=== PATIENT | male | born 1950 | race Caucasian/White ===

== ENCOUNTER → 2023-10-31 07:57 | Outpatient (REF) | payer MEDICARE, SELFPAY ==
[2023-10-31 09:18] LABS: % Basophils 1.6 % (0-2); % Eosinophils 4.1 % (0-6); % Immature Granulocytes 0.5 % (0-0.5); % Lymphocytes 32.7 % (20.5-51.1); % Monocytes 10.8 % (1.7-9.3); % Neutrophils 50.3 % (42.2-75.2); Absolute Basophils 0.1 10^3/uL (0-0.2); Absolute Eosinophils 0.3 10^3/uL (0-0.7); Absolute Lymphocytes 2.1 10^3/uL (1.2-3.4); Absolute Monocytes 0.7 10^3/uL (0.1-0.6); Absolute Neutrophils 3.2 10^3/uL (1.4-6.5); Hematocrit 44.1 % (39.0-52.0); Hemoglobin 15.8 g/dL (13.0-18.0); Mean Corp Hgb Conc. 35.8 g/dL (33.0-37.0); Mean Corpuscular Hgb 33.2 pg (27.0-31.0); Mean Corpuscular Volume 92.6 fL (80.0-94.0); Mean Platelet Volume 10.5 fL (7.4-10.4); Nucleated Red Blood Cells % 0 % (-); Platelet Count 339 10^3/uL (130-400); Red Blood Cell Count 4.76 10^6/uL (4.70-6.10); Red Cell Dist. Width 13.2 % (11.5-14.5); White Blood Cell Count 6.4 10^3/uL (4.8-10.8)
[2023-10-31 10:12] LABS: ALT (SGPT) 29 U/L (0-50); AST (SGOT) 35 U/L (17-59); Albumin 4.7 g/dl (3.5-5.0); Alkaline Phosphatase 64 U/L (38-126); Blood Urea Nitrogen 16 mg/dl (9-20); Calcium 10.2 mg/dl (8.4-10.2); Carbon Dioxide 29 mmol/L (22-30); Chloride 103 mmol/L (98-107); Glucose 114 mg/dl (70-99); HDL Cholesterol 38 mg/dl; LDL Cholesterol, Calculated 68 mg/dl; Potassium 3.7 mmol/L (3.5-5.1); Sodium 137 mmol/L (135-145); Total Bilirubin 1.6 mg/dl (0.2-1.3); Total Cholesterol 133 mg/dl (50-199); Total Protein 7.4 g/dl (6.3-8.2); Triglyceride 138 mg/dl (10-149); Very Low Density Lipoprotein 27 mg/dl (0-30); eGFR > 60.00
[2023-10-31 15:06] LABS: AFP Male/Tumor Marker 2.44 ng/ml
[2023-11-01 15:00] LABS: HCV Quant by NAAT IU/mL Not Detected; HCV Quant by NAAT Interp Not Detected (Not Detected); HCV Quant by NAAT Log IU/mL Not Detected log IU/mL
== END ==
LOC: REG 07:57
PROVIDERS: ATTENDING PHYSICIAN Family Medicine
DX: I10 Essential (primary) hypertension (principal); E78.2 Mixed hyperlipidemia; Z86.19 Personal history of other infectious and parasitic diseases
CPT/HCPCS: 36415; 80053; 80061; 82105; 85025; 87522

== ENCOUNTER 2024-02-08 14:54 | Emergency (ER) | payer MEDICARE, SELFPAY ==
[2024-02-08 14:57] VITALS: BP 132/92; BP 82/67
[2024-02-08 15:01] VITALS: BP 132/92
[2024-02-08 15:10] VITALS: BMI 30.4
[2024-02-08] MEDS: NSS 1000 IV (15:13)
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
[2024-02-08 15:19] LABS: Carboxyhemoglobin 6.3 %
[2024-02-08 15:21] LABS: % Basophils 1.5 % (0-2); % Eosinophils 4.8 % (0-6); % Immature Granulocytes 0.5 % (0-0.5); % Lymphocytes 33.8 % (20.5-51.1); % Monocytes 10.3 % (1.7-9.3); % Neutrophils 49.1 % (42.2-75.2); Absolute Basophils 0.1 10^3/uL (0-0.2); Absolute Eosinophils 0.3 10^3/uL (0-0.7); Absolute Lymphocytes 2.1 10^3/uL (1.2-3.4); Absolute Monocytes 0.6 10^3/uL (0.1-0.6); Hematocrit 44.3 % (39.0-52.0); Hemoglobin 15.7 g/dL (13.0-18.0); Mean Corp Hgb Conc. 35.4 g/dL (33.0-37.0); Mean Corpuscular Hgb 32.7 pg (27.0-31.0); Mean Corpuscular Volume 92.3 fL (80.0-94.0); Mean Platelet Volume 9.8 fL (7.4-10.4); Nucleated Red Blood Cells % 0 % (-); Platelet Count 402 10^3/uL (130-400); Red Cell Dist. Width 13.2 % (11.5-14.5); White Blood Cell Count 6.2 10^3/uL (4.8-10.8)
[2024-02-08 15:30] VITALS: BP 125/76
[2024-02-08 15:34] LABS: ALT (SGPT) 23 U/L (0-50); AST (SGOT) 34 U/L (17-59); Albumin 4.6 g/dl (3.5-5.0); Alkaline Phosphatase 58 U/L (38-126); Blood Urea Nitrogen 13 mg/dl (9-20); Calcium 9.9 mg/dl (8.4-10.2); Carbon Dioxide 22 mmol/L (22-30); Chloride 110 mmol/L (98-107); Estimated Creatinine Clearance 107 ml/min; Glucose 108 mg/dl (70-99); Potassium 4.2 mmol/L (3.5-5.1); Sodium 143 mmol/L (135-145); Total Bilirubin 1.3 mg/dl (0.2-1.3); Total Protein 7.2 g/dl (6.3-8.2); eGFR > 60.00
[2024-02-08 16:15] VITALS: BP 141/89
[2024-02-08 16:30] VITALS: BP 146/88
[2024-02-08 17:00] VITALS: BP 142/93
== END 2024-02-08 17:38 | disposition home or self-care (01) ==
LOC: EMR 14:54
PROVIDERS: EMERGENCY PHYSICIAN Emergency Medicine; FAMILY PHYSICIAN Family Medicine
DX: T59.811A Toxic effect of smoke, accidental (unintentional), initial encounter (principal); X00.0XXA Exposure to flames in uncontrolled fire in building or structure, initial encounter; F17.200 Nicotine dependence, unspecified, uncomplicated; I10 Essential (primary) hypertension
CPT/HCPCS: 99284; 96360; 71046; 80053; 82375; 85025

== ENCOUNTER 2024-06-03 11:40 | Emergency (ER) | payer MEDICARE, SELFPAY ==
[2024-06-03 11:45] VITALS: BP 186/90
[2024-06-03 11:48] VITALS: BP 180/90
[2024-06-03 12:08] LABS: % Basophils 0.9 % (0-2); % Eosinophils 2.4 % (0-6); % Immature Granulocytes 0.4 % (0-0.5); % Lymphocytes 14.5 % (20.5-51.1); % Monocytes 8.3 % (1.7-9.3); % Neutrophils 73.5 % (42.2-75.2); Absolute Basophils 0.1 10^3/uL (0-0.2); Absolute Eosinophils 0.2 10^3/uL (0-0.7); Absolute Lymphocytes 1.4 10^3/uL (1.2-3.4); Absolute Monocytes 0.8 10^3/uL (0.1-0.6); Hematocrit 43.8 % (39.0-52.0); Hemoglobin 15.3 g/dL (13.0-18.0); Mean Corp Hgb Conc. 34.9 g/dL (33.0-37.0); Mean Corpuscular Hgb 32.6 pg (27.0-31.0); Mean Corpuscular Volume 93.2 fL (80.0-94.0); Nucleated Red Blood Cells % 0 % (-); Platelet Count 417 10^3/uL (130-400); Red Cell Dist. Width 13.1 % (11.5-14.5); White Blood Cell Count 9.6 10^3/uL (4.8-10.8)
[2024-06-03 12:22] LABS: ALT (SGPT) 35 U/L (0-50); AST (SGOT) 36 U/L (17-59); Albumin 4.6 g/dl (3.5-5.0); Alkaline Phosphatase 80 U/L (38-126); Blood Urea Nitrogen 13 mg/dl (9-20); Calcium 9.5 mg/dl (8.4-10.2); Carbon Dioxide 19 mmol/L (22-30); Chloride 107 mmol/L (98-107); Glucose 112 mg/dl (70-99); Potassium 4.4 mmol/L (3.5-5.1); Sodium 140 mmol/L (135-145); Total Bilirubin 1.4 mg/dl (0.2-1.3); Total Protein 7.4 g/dl (6.3-8.2); eGFR > 60.00
[2024-06-03 12:32] LABS: Troponin I < 0.012 ng/ml
--- NOTE | 2024-06-03 13:25 | ED.GENMED ---
History of Present Illness
General
Chief Complaint: Chest Pain
Time Seen by Provider: 06/03/24 12:57
History of Present Illness
History of Present Illness:
TIME OF INITIAL ENCOUNTER: 1:30 PM
HPI: The patient presents with right upper quadrant pain that radiates towards the epigastrium/lower chest for the past week. He describes it as a 'burning' sensation. He is not taking any PPI or H2 [place]. He has not had similar episodes in the
past. He has had a cholecystectomy in the past. He also has an ongoing cough for the past couple of weeks that is overall improving currently.
EXAM:
GENERAL: Well appearing in no distress, elevated BMI
HEENT: Moist oral mucosa
CARDIOVASCULAR: No murmurs, normal heart rate, regular rhythm, No chest wall tenderness, relatively large lipoma noted over the right trapezius region
PULMONARY: No respiratory distress, breath sounds are clear and equal
ABDOMEN: Soft with no peritoneal signs, mild right-sided/epigastric tenderness
NEUROLOGIC: Good strength all extremities, no coordination deficits
PSYCHIATRIC: Appropriate mental status, normal insight and judgement
EXTREMITIES: Nontender, trace lower extremity edema, moves all extremities equally
SKIN: No rash, no lesions
NUMBER AND COMPLEXITY OF PROBLEMS ADDRESSED AT THE ENCOUNTER
� Chronic conditions affecting care: Cholecystectomy, bipolar disorder, no known CAD
� Acute Exacerbation and/or Progression of Chronic Illness: This is an acute problem
� Differential Diagnosis includes: Choledocholithiasis, gastritis, esophagitis, ulcer, ACS unlikely given normal EKG and troponin and symptoms ongoing for a week
AMOUNT AND/OR COMPLEXITY OF DATA TO BE REVIEWED AND ANALYZED
� I performed an independent evaluation of and my interpretation is:
EKG: Sinus 70, no acute ST abnormality, no change from 07/16/2021
CT: CT imaging reviewed�questionable choledocholithiasis�cholangitis
X-rays:
Laboratory Studies: CBC unremarkable, bicarb slightly low at 19, total bili 1.4 but transaminases normal. Initial troponin less than 0.012
Other:
� Review of other/old records: I reviewed old records, other than EKGs, I see no stress testing
� Clinical information was obtained by an independent historian: None needed
� Prescriptions/Medications Considered but not given:
� Further testing considered but not performed:
RISK OF COMPLICATIONS AND/OR MORBIDITY OR MORTALITY OF PATIENT MANAGEMENT
� Social determinants of health affecting care: Lives at home
� Discussion with other providers: I did message the GI front office at 4:45 PM to help arrange close outpatient follow-up
� Escalation of care including admission/observation vs risk of discharge considered: As patient seems to have symptoms that are more related to the abdomen, CT imaging obtained.
ANY OTHER UPDATES:
2:50 PM: Patient waiting for CT but appears comfortable
4:40 PM: The patient overall feels significant proved after Pepcid was given, therefore based on exam and labs, I do not have strong suspicion for cholangitis/choledocholithiasis. Patient is to start PPI. He feels comfortable and eager to go home.
Past History
Past History
ED Past Medical History: HTN, Hypercholesterolemia and Other (PUD)
ED Past Surgical History: None
Social History
Tobacco: Smoker
Alcohol: Daily (Vodka)
Personal:
Living: alone
Family History
Family History: Negative Diabetes, Hypertension or CAD
Phy Exam
Physical Exam
Physical Exam:
See HPI
Scores
Heart Score for Chest Pain Patients
STEMI patient?: Not applicable
Course
Orders/Labs/Results
Orders:
Orders
06/03/24 11:41
Electrocardiogram (*1) Urgent
Reason for Study: Chest Pain
EKG- Treatment ONCE
06/03/24 11:55
Complete Blood Count/With Diff Urgent
Comprehensive Metabolic Panel Urgent
Troponin I Urgent
06/03/24 13:32
CT Abd/pelvis W Iv Cont Urgent
Comment:
Reason For Exam: R pain
CR Chest - 2 Views Urgent
Comment:
Reason For Exam: cough
06/03/24 13:36
Famotidine [Pepcid] 20 mg IV NOW STA
Abnormal Lab Results
06/03/24
11:55
MCH 32.6 H pg
(27.0-31.0)
Plt Count 417 H 10^3/uL
(130-400)
Absolute Neuts (auto) 7.0 H 10^3/uL
(1.4-6.5)
Absolute Monos (auto) 0.8 H 10^3/uL
(0.1-0.6)
Lymphocytes % 14.5 L %
(20.5-51.1)
Carbon Dioxide 19 L mmol/L
(22-30)
Glucose 112 H mg/dl
(70-99)
Total Bilirubin 1.4 H mg/dl
(0.2-1.3)
06/03/24 11:55
06/03/24 11:55
Vital Signs
Initial and Last Documented VS:
Initial Vital Signs
Temp Pulse BP Pulse Ox
98.0 F 67 186/90 99
06/03/24 11:45 06/03/24 11:45 06/03/24 11:45 06/03/24 11:45
Last Documented Vital Signs
Temp Pulse Resp BP Pulse Ox
98.2 F 73 14 180/90 97
06/03/24 11:48 06/03/24 15:45 06/03/24 15:24 06/03/24 11:48 06/03/24 15:45
*Critical Care Note
Total Time (30-74mins, 75-104mins- exclusive of procedures): Not Applicable
ED Attending Note
-
Portions of this chart may have been created with voice recognition software.� Occasional wrong word or��sound alike� substitutions may have occurred due to the inherent limitations of voice recognition software.
Discharge Plan
Departure
Patient Disposition: Home (Routine Discharge)
Date of Disposition: 06/03/24
Time of Disposition: 16:42
Patient with high blood pressure during this ER visit?: Yes
Discharge Problem:
Abdominal pain
Instructions: Acid Reflux and GERD in Adults (DC), Abdominal Pain, BLOOD PRESSURE
Prescriptions:
No Action
atorvastatin 40 MG tablet
40 mg PO HS
brimonidine-timolol [Combigan] 1 DROP drops
1 drp RIGHT EYE BID
multivitamin 1 EACH tablet
1 ea PO DAILY
acetaminophen 325 MG tablet
650 mg PO Q4HPRN PRN (Reason: mild pain) Qty: 1 0RF
mirtazapine 30 mg Tablet
30 mg PO HS
Bowel Prep
1 unit PO PER PROTOCOL
hydrochloric acid
25 mg PO DAILY
Referrals:
Emory Mann MD [Family Provider] -
Activity Restrictions/Additional Instructions:
You can take either Pepcid or Zantac for quick-acting acid relief. I also recommend that you take a 2-week course of [id number] omeprazole to help block stomach acid production. Your white blood cell count is normal. Your total bilirubin
level is minimally elevated but similar to prior. The rest of your liver function tests were normal. The CAT scan of the abdomen pelvis did not show anything definitive however there was questionable signs for cholangitis and/or
choledocholithiasis. However your white blood cell count was normal, for the most part your LFTs were normal, and you are feeling better with Pepcid. I recommend that you follow-up with [facility] spivey message their office to try to get you in
soon.
Interventions
Interventions:
*Risk Screen - Suicide Last Done: 06/03/24 11:48
*General Assessment Last Done: 06/03/24 13:25
*Neglect/Abuse Screening Last Done: 06/03/24 11:48
ED- Cardiac Assessment Last Done: 06/03/24 13:24
Discharge Date and Time
Print Language: [place]
[2024-06-03] MEDS: PEPCID 20 MG IV (13:55)
[2024-06-03] MEDS: PEPCID 20 MG PO (17:08)
[2024-06-03 17:09] VITALS: BP 157/94
== END 2024-06-03 17:10 | disposition home or self-care (01) ==
LOC: EMR 11:40
PROVIDERS: Emergency Medicine; EMERGENCY PHYSICIAN Emergency Medicine; FAMILY PHYSICIAN Family Medicine
DX: R10.11 Right upper quadrant pain (principal); R07.89 Other chest pain; E78.00 Pure hypercholesterolemia, unspecified; I10 Essential (primary) hypertension; K59.00 Constipation, unspecified; F17.200 Nicotine dependence, unspecified, uncomplicated; Z87.11 Personal history of peptic ulcer disease; Z90.49 Acquired absence of other specified parts of digestive tract
CPT/HCPCS: 99284; 96374; 71046; 74177; 80053; 84484; 85025; 93005; Q9967

== ENCOUNTER → 2024-07-26 11:52 | Outpatient (REF) | payer MEDICARE, SELFPAY ==
[2024-07-26 13:26] LABS: ALT (SGPT) 23 U/L (0-50); AST (SGOT) 30 U/L (17-59); Albumin 4.4 g/dl (3.5-5.0); Alkaline Phosphatase 64 U/L (38-126); Blood Urea Nitrogen 13 mg/dl (9-20); Calcium 9.3 mg/dl (8.4-10.2); Carbon Dioxide 24 mmol/L (22-30); Chloride 107 mmol/L (98-107); Glucose 97 mg/dl (70-99); HDL Cholesterol 35 mg/dl; LDL Cholesterol, Calculated 93 mg/dl; Potassium 4.5 mmol/L (3.5-5.1); Sodium 137 mmol/L (135-145); Total Bilirubin 1.2 mg/dl (0.2-1.3); Total Cholesterol 158 mg/dl (50-199); Total Protein 7.1 g/dl (6.3-8.2); Triglyceride 150 mg/dl (10-149); Very Low Density Lipoprotein 30 mg/dl (0-30); eGFR > 60.00
[2024-07-26 13:54] LABS: PSA, Total - Screen 1.01 ng/ml (0.0-4.0)
[2024-07-27 08:20] LABS: Glycohemoglobin (HgbA1c) 5.4 % (4.0-5.6)
== END ==
LOC: REG 11:52
PROVIDERS: ATTENDING PHYSICIAN Family Medicine; FAMILY PHYSICIAN Internal Medicine Gastroenterology
DX: R10.9 Unspecified abdominal pain (principal); R73.01 Impaired fasting glucose; E78.2 Mixed hyperlipidemia; Z12.5 Encounter for screening for malignant neoplasm of prostate
CPT/HCPCS: 36415; 80053; 80061; 83036; G0103

== ENCOUNTER → 2024-07-26 12:42 | Outpatient (REF) | payer MEDICARE, SELFPAY | LOC: PAVMRI 12:42 | PROVIDERS: ATTENDING PHYSICIAN Internal Medicine Gastroenterology; FAMILY PHYSICIAN Family Medicine | DX: R10.9 Unspecified abdominal pain (principal) | CPT/HCPCS: 74183; A9575 ==

== ENCOUNTER 2024-10-07 06:17 | Day surgery (SDC) | payer MEDICARE, SELFPAY ==
[2024-10-07 06:53] VITALS: BMI 32.5
[2024-10-07 06:54] VITALS: BMI 32.5
[2024-10-07 06:55] VITALS: BP 146/84
[2024-10-07 08:50] VITALS: BP 146/84
[2024-10-07 09:00] VITALS: BP 139/92
[2024-10-07 09:15] VITALS: BP 144/82
[2024-10-07 09:45] VITALS: BP 177/89
[2024-10-07 09:55] VITALS: BP 160/93
== END 2024-10-07 10:00 | disposition home or self-care (01) ==
LOC: SDS 06:17
PROVIDERS: ATTENDING PHYSICIAN Internal Medicine Gastroenterology; FAMILY PHYSICIAN Family Medicine
DX: K80.50 Calculus of bile duct without cholangitis or cholecystitis without obstruction (principal); R93.3 Abnormal findings on diagnostic imaging of other parts of digestive tract
CPT/HCPCS: 43262; 43264; 74330; 76000; C1769

== ENCOUNTER → 2025-02-02 08:34 | Outpatient (REF) | payer MEDICARE, SELFPAY ==
[2025-02-02 10:13] LABS: Glycohemoglobin (HgbA1c) 5.4 % (4.0-5.6)
[2025-02-02 11:13] LABS: ALT (SGPT) 24 U/L (0-50); AST (SGOT) 30 U/L (17-59); Albumin 4.6 g/dl (3.5-5.0); Alkaline Phosphatase 72 U/L (38-126); Blood Urea Nitrogen 15 mg/dl (9-20); Calcium 9.6 mg/dl (8.4-10.2); Carbon Dioxide 19 mmol/L (22-30); Chloride 113 mmol/L (98-107); Glucose 109 mg/dl (70-99); HDL Cholesterol 31 mg/dl; LDL Cholesterol, Calculated 90 mg/dl; Potassium 4.5 mmol/L (3.5-5.1); Sodium 142 mmol/L (135-145); Total Protein 7.1 g/dl (6.3-8.2); Very Low Density Lipoprotein 33 mg/dl (0-30); eGFR > 60.00
== END ==
LOC: REG 08:34
PROVIDERS: ATTENDING PHYSICIAN Family Medicine
DX: R73.01 Impaired fasting glucose (principal); E78.2 Mixed hyperlipidemia
CPT/HCPCS: 36415; 80053; 80061; 83036

== ENCOUNTER → 2025-07-12 06:31 | Outpatient (REF) | payer MEDICARE, SELFPAY ==
[2025-07-12 07:42] LABS: Hematocrit 50.6 % (39.0-52.0); Hemoglobin 16.9 g/dL (13.0-18.0); Mean Corp Hgb Conc. 33.4 g/dL (33.0-37.0); Mean Corpuscular Volume 102.2 fL (80.0-94.0); Nucleated Red Blood Cells % 0 % (-); Red Cell Dist. Width 13.4 % (11.5-14.5)
[2025-07-12 08:03] LABS: C-Reactive Protein < 5.00 mg/L (0.0-10.00)
== END ==
LOC: REG 06:31
PROVIDERS: ATTENDING PHYSICIAN Physician Assistant Medical; FAMILY PHYSICIAN Family Medicine
DX: Z96.641 Presence of right artificial hip joint (principal); T84.84XA Pain due to internal orthopedic prosthetic devices, implants and grafts, initial encounter
CPT/HCPCS: 36415; 85025; 85652; 86140

== ENCOUNTER → 2025-07-16 08:00 | Outpatient (REF) | payer MEDICARE, SELFPAY | LOC: RAD 08:00 | PROVIDERS: ATTENDING PHYSICIAN Physician Assistant Medical; FAMILY PHYSICIAN Family Medicine | DX: T84.84XA Pain due to internal orthopedic prosthetic devices, implants and grafts, initial encounter (principal) | CPT/HCPCS: 73700 ==